=== PATIENT | male | born 1980 | race Two or more races ===

== ENCOUNTER 2022-04-22 12:28 | Emergency (ER) | payer MEDICAID ==
[~2022-04-22] VITALS: Ht 167.6 cm; Wt 91.5 kg
[~2022-04-22 12:28] MED LIST: AML5T PO; ATOR20TA PO; AZITTAB11 PO; ZOLP10TA PO
[2022-04-22 13:06] VITALS: BP 158/108
[2022-04-22] MEDS ORDERED: TOBR0.3S EACHEYE (13:34)
== END 2022-04-22 13:44 | disposition home or self-care (01) ==
LOC: ER 12:28
DX: H10.32 Unspecified acute conjunctivitis, left eye (principal); I10 Essential (primary) hypertension

== ENCOUNTER 2022-10-18 20:13 | Inpatient (IN) | payer MEDICAID ==
[~2022-10-18] VITALS: Ht 167.6 cm; Wt 94.0 kg
[~2022-10-18 20:13] MED LIST changes: +TOBR0.3S EACHEYE
[2022-10-18 20:45] LABS: Basophils # (auto) 0.1 10 ^3/uL (0-0.2); Eosinophils # (auto) 0.2 10 ^3/uL (0-0.8); Hematocrit 46.5 % (41.0-53.0); Hemoglobin 16.8 g/dL (13.5-17.5); Lymphocytes # (auto) 2.1 10 ^3/uL (0.4-5.4); Lymphocytes % (auto) 29.3 % (10.0-50.0); Mean Corpuscular Hemoglobin 30.8 pg (28.0-32.0); Mean Corpuscular Hgb Conc. 36.2 g/dL (32.0-36.0); Mean Corpuscular Volume 85.1 fL (80.0-100.0); Monocytes # (auto) 0.3 10 ^3/uL (0-1.3); Monocytes % (auto) 4.4 % (0.0-12.0); Neutrophils # (auto) 4.5 10 ^3/uL (1.6-8.6); Neutrophils % (auto) 62.3 % (37.0-80.0); Red Blood Cells 5.46 10^6/uL (4.5-5.90); Red Cell Distribution Width 13.9 % (11.8-14.3); White Blood Cell 7.2 10^3/uL (4.4-10.8)
[2022-10-18] MEDS ORDERED: cloNIDine HCL 0.1 MG TAB PO ONE (20:45)
[2022-10-18 20:53] LABS: Albumin 3.9 g/dL (3.4-5.0); BUN/Creatinine Ratio 11.5 (10.0-20.0); Calcium 8.9 mg/dL (8.5-10.1); Magnesium 2.3 mg/dL (1.6-2.6); Potassium 3.3 mmol/L (3.5-5.1)
[2022-10-18 20:56] LABS: Bilirubin, Total 0.3 mg/dL (0.2-1.0); Total Protein 8.1 g/dL (6.4-8.2)
[2022-10-18 21:02] LABS: INR 0.94 (0.9-1.15); Partial Thromboplastin Time 26.9 sec (24.6-33.4)
[2022-10-18] MEDS ORDERED: ACETAMINOPHEN 325 MG TAB PO PRN (23:00)
[2022-10-18] MEDS ORDERED: ONDANSETRON HCL 4 MG/2 ML VIAL IV PRN (23:00)
[2022-10-18] MEDS ORDERED: NITROGLYCERIN 0.4 MG SL TAB SL PRN (23:00)
[2022-10-18] MEDS ORDERED: TEMAZEPAM 15 MG CAP PO PRN (23:00)
[2022-10-18] MEDS ORDERED: ENOXAPARIN SOD 100 MG/1 ML SYRINGE SC ONE (23:00)
[2022-10-18] MEDS ORDERED: MORPHINE SULFATE INJ 2 MG/ml SYRG IV PRN (23:00)
[2022-10-18] MEDS ORDERED: METOPROLOL TARTRATE 25 MG TAB PO ONE (23:00)
[2022-10-18 23:53] LABS: Cholesterol 178 mg/dL (< 200); HDL Cholesterol 28 mg/dL (40-59); LDL Cholesterol 125 mg/dL (< 100); Triglycerides 277 mg/dL (< 150)
[2022-10-19] VITALS (7 sets, daily range): BP systolic 101–124; BP diastolic 68–88
[2022-10-19 06:38] LABS: BUN/Creatinine Ratio 21.3 (10.0-20.0); Calcium 8.8 mg/dL (8.5-10.1); Potassium 3.2 mmol/L (3.5-5.1)
[2022-10-19 08:00] LABS: Basophils # (auto) 0.1 10 ^3/uL (0-0.2); Eosinophils # (auto) 0.2 10 ^3/uL (0-0.8); Eosinophils % (auto) 3.6 % (0.0-7.0); Hematocrit 42.5 % (41.0-53.0); Hemoglobin 15.4 g/dL (13.5-17.5); Lymphocytes # (auto) 1.7 10 ^3/uL (0.4-5.4); Lymphocytes % (auto) 29.2 % (10.0-50.0); Mean Corpuscular Hemoglobin 30.9 pg (28.0-32.0); Mean Corpuscular Hgb Conc. 36.1 g/dL (32.0-36.0); Mean Corpuscular Volume 85.5 fL (80.0-100.0); Monocytes # (auto) 0.3 10 ^3/uL (0-1.3); Monocytes % (auto) 4.5 % (0.0-12.0); Neutrophils # (auto) 3.7 10 ^3/uL (1.6-8.6); Neutrophils % (auto) 61.7 % (37.0-80.0); Nucleated Red Blood Cells % 0.3 %; Red Blood Cells 4.98 10^6/uL (4.5-5.90); Red Cell Distribution Width 14.2 % (11.8-14.3); White Blood Cell 5.9 10^3/uL (4.4-10.8)
[2022-10-19] MEDS ORDERED: POTASSIUM CHL 20 Meq TABLET PO ONE (08:00)
[2022-10-19] MEDS ORDERED: amLODIPine BESYLATE 5 MG TAB PO SCH (10:00)
[2022-10-19] MEDS ORDERED: PANTOPRAZOLE 40 MG TAB PO SCH (10:00)
[2022-10-19] MEDS ORDERED: ENOXAPARIN SOD 40 MG/0.4 ML SYRINGE SC SCH (10:00)
[2022-10-19] MEDS ORDERED: METOPROLOL TARTRATE 25 MG TAB PO SCH (10:00)
[2022-10-19] MEDS ORDERED: SERTRALINE HCL 50 MG TAB PO SCH (10:00)
[2022-10-19] MEDS ORDERED: ASPirin 81 mg TAB PO SCH ×2 (10:00)
[2022-10-19] MEDS ORDERED: PRASUGREL HCL 10 MG TAB PO ONE (12:15)
[2022-10-19] MEDS ORDERED: ANGIOMAX 250 MG VIAL IV ONE (14:30)
[2022-10-19] MEDS ORDERED: SODIUM CHL 0.9% 0 ML ONE (14:31)
[2022-10-19] MEDS ORDERED: HEPARIN SODIUM (PORCINE) 5000 UNITS/ML 1ML VIAL ONE (14:31)
[2022-10-19] MEDS ORDERED: VERAPAMIL 2.5MG/ML INJ 2ML VIAL IV ONE (14:31)
[2022-10-19] MEDS ORDERED: MIDAZOLAM HCL 2MG/2ML 2ml VIAL (1mg/ml) ONE (14:31)
[2022-10-19] MEDS ORDERED: fentaNYL CITRATE 100 MCG/2 ML VL ONE (14:31)
[2022-10-19] MEDS ORDERED: IODIXANOL 320MG/ML 100ML BTL IV ONE (14:34)
[2022-10-19] MEDS ORDERED: LIDOCAINE 2%HCL (LOCAL ANESTH.) INJ 20ML MDV ONE (14:34)
[2022-10-19] MEDS ORDERED: AML5T PO (17:50)
[2022-10-19] MEDS ORDERED: ATOR20TA50 PO (17:50)
[2022-10-19] MEDS ORDERED: ENAL10TA13 PO (17:50)
[2022-10-19] MEDS ORDERED: ASPI-325 PO (17:50)
[2022-10-19] MEDS ORDERED: ATORVASTATIN 20 MG TAB PO SCH ×2 (22:00)
== END 2022-10-19 20:15 | disposition home or self-care (01) | DRG 190 ==
LOC: ER 20:13 → TELE 23:08 → TELE-WESTW 10-19 16:28
PROVIDERS: ADMIT Nurse Practitioner; ATTEND Internal Medicine
PROC: 4A023N7 Measurement of Cardiac Sampling and Pressure, Left Heart, Percutaneous Approach (ICD-10-PCS; principal; 2022-10-19)
PROC: B2111ZZ Fluoroscopy of Multiple Coronary Arteries using Low Osmolar Contrast (ICD-10-PCS; 2022-10-19)
DX: I21.4 Non-ST elevation (NSTEMI) myocardial infarction (principal); N17.9 Acute kidney failure, unspecified; Z20.822 Contact with and (suspected) exposure to COVID-19; I10 Essential (primary) hypertension; Z83.3 Family history of diabetes mellitus
CPT/HCPCS: 36415; 71045; 78452; 80048; 80053; 80061; 83735; 83880; 84484; 85025; 85610; 85730; 87426; 93005; 93017; G0378; J2250; Q9967

== ENCOUNTER 2023-01-18 16:58 | Emergency (ER) | payer MEDICAID ==
[~2023-01-18] VITALS: Ht 167.6 cm; Wt 86.0 kg
[~2023-01-18 16:58] MED LIST changes: +ASPI-325 PO; -ATOR20TA PO; +ATOR20TA50 PO; -AZITTAB11 PO; +ENAL1TAB47 PO; -ZOLP10TA PO
[2023-01-18 17:25] LABS: Basophils # (auto) 0.1 10 ^3/uL (0-0.2); Basophils % (auto) 0.8 % (0.0-2.0); Eosinophils # (auto) 0.1 10 ^3/uL (0-0.8); Eosinophils % (auto) 1.1 % (0.0-7.0); Hematocrit 46.4 % (41.0-53.0); Lymphocytes # (auto) 2.1 10 ^3/uL (0.4-5.4); Lymphocytes % (auto) 28.8 % (10.0-50.0); Mean Corpuscular Hemoglobin 30.4 pg (28.0-32.0); Mean Corpuscular Hgb Conc. 34.4 g/dL (32.0-36.0); Mean Corpuscular Volume 88.4 fL (80.0-100.0); Monocytes # (auto) 0.3 10 ^3/uL (0-1.3); Monocytes % (auto) 4.3 % (0.0-12.0); Neutrophils # (auto) 4.8 10 ^3/uL (1.6-8.6); Nucleated Red Blood Cells % 0.1 %; Red Blood Cells 5.25 10^6/uL (4.5-5.90); Red Cell Distribution Width 14.3 % (11.8-14.3); White Blood Cell 7.5 10^3/uL (4.4-10.8)
[2023-01-18] MEDS ORDERED: KETOROLAC TROMETH 60MG/2ML VIAL IM ONE (17:30)
[2023-01-18] MEDS ORDERED: ASPirin 81 mg TAB PO ONE (17:30)
[2023-01-18 18:01] LABS: Albumin 4.1 g/dL (3.4-5.0); BUN/Creatinine Ratio 17.9 (10.0-20.0); Magnesium 2.3 mg/dL (1.6-2.6); Potassium 4.3 mmol/L (3.5-5.1)
[2023-01-18 18:03] LABS: Bilirubin, Total 0.4 mg/dL (0.2-1.0); Total Protein 7.6 g/dL (6.4-8.2)
[2023-01-18 18:34] LABS: Urine WBC None Seen /hpf (0 - 3)
[2023-01-18 18:52] LABS: Urine Bacteria NONE SEEN /hpf (None Seen); Urine Blood Negative /uL (Negative); Urine Specific Gravity 1.011 (1.001-1.035)
[2023-01-18 19:07] VITALS: BP 118/71
== END 2023-01-18 19:09 | disposition home or self-care (01) ==
LOC: ER 16:58
DX: R07.89 Other chest pain (principal); I10 Essential (primary) hypertension
CPT/HCPCS: 36415; 71045; 80053; 81001; 83735; 84484; 85025; 93005; 96372; 99285; J1885

== ENCOUNTER → 2024-12-16 | Day surgery (SDC) | payer SELFPAY ==
[2024-12-10 13:33] LABS: Urine Bacteria None Seen /hpf (None Seen)
[2024-12-10 13:38] LABS: Basophils # (auto) 0.1 10 ^3/uL (0-0.2); Basophils % (auto) 1.1 % (0.0-2.0); Eosinophils # (auto) 0.2 10 ^3/uL (0-0.8); Eosinophils % (auto) 3.5 % (0.0-7.0); Hematocrit 50.7 % (41.0-53.0); Hemoglobin 17.6 g/dL (13.5-17.5); Lymphocytes % (auto) 38.3 % (10.0-50.0); Mean Corpuscular Hgb Conc. 34.6 g/dL (32.0-36.0); Mean Corpuscular Volume 89.4 fL (80.0-100.0); Monocytes # (auto) 0.3 10 ^3/uL (0-1.3); Monocytes % (auto) 6.4 % (0.0-12.0); Neutrophils # (auto) 2.6 10 ^3/uL (1.6-8.6); Neutrophils % (auto) 50.7 % (37.0-80.0); Nucleated Red Blood Cells % 0.2 %; Platelet Count (auto) 188 10^3/uL (140-450); Red Blood Cells 5.67 10^6/uL (4.5-5.90); Red Cell Distribution Width 14.4 % (11.8-14.3); White Blood Cell 5.1 10^3/uL (4.4-10.8)
[2024-12-10 13:48] LABS: Urine Blood Negative /uL (Negative); Urine Clarity Clear (Clear); Urine Color Colorless (Yellow); Urine Protein, UAD Negative (Negative); Urine Specific Gravity 1.009 (1.001-1.035); Urine Squamous Epithelial Cell None Seen /hpf (<5); Urine Urobilinogen Normal (Negative); Urine pH 5.5 (5.0-9.0)
[2024-12-10 13:52] LABS: INR 1.09 (0.9-1.15); Partial Thromboplastin Time 27.3 SEC (24.5-34.5); Prothrombin Time 11.5 sec (9.3-11.8)
[2024-12-10 13:54] LABS: Alkaline Phosphatase 56 U/L (46-116); Anion Gap 8 (5-15); Aspartate Aminotransferase 39 U/L (13-40); BUN/Creatinine Ratio 12.9 (10.0-20.0); Blood Urea Nitrogen 17 mg/dL (9-23); Carbon Dioxide 27 mmol/L (20-31); Chloride 105 mmol/L (98-107); Glucose 97 mg/dL (74-106); Potassium 4.6 mmol/L (3.5-5.1); Sodium 140 mmol/L (136-145); Total Protein 7.9 g/dL (5.7-8.2)
[2024-12-10 13:55] LABS: Alanine Aminotransferase 50 U/L (7-40); Bilirubin, Total 0.8 mg/dL (0.2-1.0); Calcium 10.5 mg/dL (8.7-10.4)
[~2024-12-16] VITALS: Ht 167.6 cm; Wt 97.1 kg
[~2024-12-16] MED LIST changes: -AML5T PO; -ASPI-325 PO; -ATOR20TA50 PO; +CHOL20007 OR; -ENAL1TAB47 PO; +FENO145T27 OR; +GLYCOPYRROLATE 0.2 MG/ML 1ML VIAL ONE; +HYDR12.59 PO; +HYDROmorphone HCL 2 MG/ML VL/or syr IV PRN; +KETAMINE 50mg/ML 1ml syringe ONE; +KETOROLAC TROMETH 30 MG/ML 1ML VIAL ONE; +LEVO-848 GT; +LIDOCAINE W/ EPINEPHRINE 1% 20ML VIAL ONE; +LOSA-534 PO; +MIDAZOLAM HCL 2MG/2ML 2ml VIAL (1mg/ml) ONE; +ONDANSETRON HCL 4 MG/2 ML VIAL IV ONE; +ONDANSETRON HCL 4 MG/2 ML VIAL ONE; +PROPOFOL 10 MG/ML 20 ML IV ONE; -TOBR0.3S EACHEYE; +ceFAZolin 2 GM/D5W50ml 50 ML IV ONE
[2024-12-16] MEDS: BUPIVACAINE 0.5% P/F INJ 10 ML VIAL ONE (12:40)
[2024-12-16] MEDS: SILVER NITRATE-POTAS NITRA STICK TOP ONE (12:48)
[2024-12-16] MEDS: BACITRACIN TOP OINT 1 UD PKG TOP ONE (12:52)
--- NOTE | 2024-12-16 12:52 | DVHOP2 ---
Operative Report - 2 Report Details Date: 12/16/24 Preop Diagnosis: 1. Left foot bunion 2. Left foot ingrown nail 3. Left foot pain Postop Diagnosis: Left foot bunion Surgeon: Tho Winn MD Anesthesiologist: See anesthesia Anesthesia: Mac Consent: The patient was informed of the risks and benefits of the procedure. These include but are not limited to complications of anesthesia, postoperative infection, incomplete relief of symptoms, recurrence of symptoms, damage to blood vessels, nerves and tendons, deep venous thrombosis, pulmonary embolism and possible need for repeat surgery in the future. Complications: None Estimated Blood Loss: Minimal Fluids: See anesthesia Findings: Consistent with the diagnosis Indications for Surgery: Worsening foot pain Name of Procedure Performed 1. Left foot bunionectomy (61059) 2. Left foot matrixectomy medial border (12144) Procedure Details Procedure Details: PRE-PROCEDURE INFORMATION: In the pre-op holding area, the extremity to be operated on was clearly marked and the patient verified correct laterality of the marking. The patient was transferred to the OR table and placed in a supine position. A timeout was performed in which identification of the correct patient, procedure, location, and materials was done. The left foot and leg were prepped and draped in normal sterile fashion. DESCRIPTION OF PROCEDURE: Attention was directed to the left 1st metatarsophalangeal joint where a stab incision was made at the neck of the 1st metatarsal. Care was taken to avoid damage the neurovascular and tendinous structures. Using intraoperative fluoroscopy and an MIS per, an osteotomy was then made at the neck of the 1st metatarsal. The metatarsal head was then shifted into position aligning the sesamoid bones over the fragment. Using a 6 2 K-wire, the wire was then driven down the shaft of the 1st metatarsal to hold the head in place until the osteotomy has healed. Fluoroscopy verified proper placement of hardware as well as correction of previous bunion deformity. Using a freer elevator, Belgian Anvil, and hemostat, the offending nail and/or nail border(s) was elevated and removed. Mild serous drainage noted, no purulent drainage. Non-viable tissue was removed with a curette. The nail borders were then treated with 3 applications of approximately 20-30 seconds of phenol followed by neutralization with alcohol. Bacitracin, sterile gauze and Coban dressing was applied to the digit. All surgical wounds were irrigated copiously with saline and closed in layers with the aforementioned suture material. A dry sterile dressing was placed on the surgical extremity. The patient was placed in a postop shoe POSTOPERATIVE INFORMATION: The patient tolerated the above noted procedure and anesthesia well and was transferred to the PACU with vital signs stable, and vascular status intact with capillary refill intact to all digits. Postoperative instructions reviewed in detail with the patient with written instructions provided. Patient will return to clinic in approximately 10-14 days for first postoperative visit. Patient has the number of the clinic and was instructed to call prior to that time should any problems, questions, or concerns arise. Condition Good Disposition Home THO WINN DPM Dec 16, 2024 12:52
[2024-12-16 13:00] VITALS: PULSE 83; RESP 14; O2SAT 95
[2024-12-16 13:35] VITALS: BP 118/70; PULSE 77; RESP 15; O2SAT 97
== END | disposition home or self-care (01) ==
LOC: SUR 11:35
PROVIDERS: ATTEND Podiatrist
DX: M21.612 Bunion of left foot (principal); L60.0 Ingrowing nail; L03.032 Cellulitis of left toe; I10 Essential (primary) hypertension; E78.00 Pure hypercholesterolemia, unspecified; E03.9 Hypothyroidism, unspecified; Z79.890 Hormone replacement therapy; Z79.899 Other long term (current) drug therapy
CPT/HCPCS: 11750; 28296; 36415; 80053; 81001; 85025; 85610; 85730; J0690; J1885; J2250; J2405; J2704; J3490